=== PATIENT | male | born 1945 | race Caucasian/White ===

== ENCOUNTER 2017-04-11 21:40 | Emergency (ER) | payer OTHER, MEDICARE ==
[~2017-04-11] VITALS: Ht 165.1 cm; Wt 75.0 kg
[2017-04-11 21:43] VITALS: BP 156/83; PULSE 57; RESP 16; TEMP 97.9; O2SAT 98
[2017-04-11] MEDS ORDERED: [UNRECOGNIZED DRUG - OTHER] PO (22:18)
--- NOTE | 2017-04-11 22:22 | PD ---
HPI Chief Complaint: Abdominal Pain Time Seen by Provider: 22:15 Travel History International Travel<30 days: No Contact w/Intl Traveler<30days: No Traveled to known affect area: No History of Present Illness HPI 71-year-old male presents to the emergency department by private transportation the care of his daughter for 7 hours of upper abdominal pain. Patient denies chest pain or shortness of breath. Patient has had 2 episodes of vomiting. No hematemesis no coffee-ground emesis no bilious emesis. No diarrhea. Patient rates pain 7/10 in intensity. Symptoms began after eating lunch. No prior history of similar type abdominal pain. No prior history of CAD hypertension diabetes or tobaccoism. Patient states he has borderline elevated cholesterol and takes no medication for this. Patient reports pain does not radiated to the back chest or into the neck or jaw. Patient's had no diaphoresis. Patient denies any lower abdominal pain or lower extremity numbness tingling or weakness. Patient's had no near-syncope or syncope. Patient is unable to identify exacerbating or alleviating factors. [facility] Past Medical History Narrative Medical borderline dyslipidemia GERD; no tobacco use: Nursing notes reviewed; family history stomach cancer GERD: Yes Integumentary: Yes (exema) Tetanus Vaccination: Never Vaccinated Past Surgical History Eye Surgery: Yes (cataract sx) Social History Alcohol Use: No Tobacco Use: No Substance Use: No Allergies-Medications (Allergen,Severity, Reaction): Coded Allergies: No Known Allergies (Verified Allergy, Unknown, 04/11/17) Reported Meds & Prescriptions Reported Meds & Active Scripts Active Reported Minocycline (Minocycline HCl) 50 Mg Cap Mg PO BID [zyrtex] PO Review of Systems Except as stated in HPI: all other systems reviewed are Neg Physical Exam Narrative GENERAL: Well-developed well-nourished male in no acute distress no respiratory distress SKIN: Warm and dry. HEAD: Normocephalic. EYES: No scleral icterus. No injection or drainage. NECK: Supple, trachea midline. No JVD or lymphadenopathy. CARDIOVASCULAR: Regular rate and rhythm without murmurs, gallops, or rubs. RESPIRATORY: Breath sounds equal bilaterally. No accessory muscle use. GASTROINTESTINAL: Abdomen soft, mild reproducible epigastric and right upper quadrant tenderness to palpation without guarding or rebound or palpable pulsatile mass., nondistended. MUSCULOSKELETAL: No cyanosis, or edema. Radial and dorsalis pedis pulses 2+ to palpation. BACK: Nontender without obvious deformity. No CVA tenderness. Data Data Last Documented VS Vital Signs Date Time Temp Pulse Resp B/P (MAP) Pulse Ox O2 Delivery O2 Flow Rate FiO2 04/12/17 05:19 04/11/17 23:22 58 95 Room Air 04/11/17 23:07 20 04/11/17 21:43 97.9 Orders Orders Complete Blood Count With Diff (04/11/17 22:16) Comprehensive Metabolic Panel (04/11/17 22:16) Lipase (04/11/17 22:16) Lactic Acid (04/11/17 22:16) Urinalysis - C+S If Indicated (04/11/17 22:16) Iv Access Insert/Monitor (04/11/17 22:16) Ecg Monitoring (04/11/17 22:16) Oximetry (04/11/17 22:16) Sodium Chloride 0.9% Flush (Ns Flush) (04/11/17 22:30) Electrocardiogram (04/11/17 22:16) Troponin I (04/11/17 22:16) Ckmb (Isoenzyme) Profile (04/11/17 22:16) Magnesium (Mg) (04/11/17 22:16) Sodium Chlor 0.9% 1000 Ml Inj (Ns 1000 M (04/11/17 22:30) Ondansetron Inj (Zofran Inj) (04/11/17 22:30) Morphine Inj (Morphine Inj) (04/11/17 22:30) Type And Screen (04/11/17 22:16) Chest, Single Ap (04/11/17 ) Aspirin Chew (Aspirin Chew) (04/11/17 22:45) Nitroglycerin Sl (Nitrostat Sl) (04/11/17 22:45) Sodium Chlorid 0.9% 500 Ml Inj (Ns 500 M (04/11/17 23:30) Hydromorphone Pf Inj (Dilaudid Pf Inj) (04/11/17 23:30) Ct Abd/Pel W Iv Contrast(Rout) (04/12/17 ) Iohexol 350 Inj (Omnipaque 350 Inj) (04/12/17 01:54) Troponin I (04/12/17 02:32) Us Abdomen Gallbladder (04/12/17 ) Ed Discharge Order (04/12/17 05:09) Labs Laboratory Tests Test 04/11/17 22:24 04/12/17 00:54 04/12/17 03:05 White Blood Count 9.0 TH/MM3 Red Blood Count 4.64 MIL/MM3 Hemoglobin 14.8 GM/DL Hematocrit 44.0 % Mean Corpuscular Volume 94.8 FL Mean Corpuscular Hemoglobin 31.8 PG Mean Corpuscular Hemoglobin Concent 33.6 % Red Cell Distribution Width 13.5 % Platelet Count 202 TH/MM3 Mean Platelet Volume 10.2 FL Neutrophils (%) (Auto) 60.6 % Lymphocytes (%) (Auto) 28.9 % Monocytes (%) (Auto) 7.2 % Eosinophils (%) (Auto) 2.8 % Basophils (%) (Auto) 0.5 % Neutrophils # (Auto) 5.4 TH/MM3 Lymphocytes # (Auto) 2.6 TH/MM3 Monocytes # (Auto) 0.6 TH/MM3 Eosinophils # (Auto) 0.2 TH/MM3 Basophils # (Auto) 0.0 TH/MM3 CBC Comment DIFF FINAL Differential Comment Blood Urea Nitrogen 20 MG/DL Creatinine 0.96 MG/DL Random Glucose 133 MG/DL Total Protein 7.2 GM/DL Albumin 3.5 GM/DL Calcium Level 7.7 MG/DL Magnesium Level 2.1 MG/DL Alkaline Phosphatase 96 U/L Aspartate Amino Transf (AST/SGOT) 22 U/L Alanine Aminotransferase (ALT/SGPT) 20 U/L Total Bilirubin 0.3 MG/DL Sodium Level 142 MEQ/L Potassium Level 4.5 MEQ/L Chloride Level 109 MEQ/L Carbon Dioxide Level 26.9 MEQ/L Anion Gap 6 MEQ/L Estimat Glomerular Filtration Rate 78 ML/MIN Lactic Acid Level 1.4 mmol/L Total Creatine Kinase 73 U/L Troponin I LESS THAN 0.02 NG/ML LESS THAN 0.02 NG/ML Lipase 157 U/L Urine Color YELLOW Urine Turbidity CLEAR Urine pH 5.5 Urine Specific [place] 1.029 Urine Protein TRACE mg/dL Urine Glucose (UA) NEG mg/dL Urine Ketones NEG mg/dL Urine Occult Blood NEG Urine Nitrite NEG Urine Bilirubin NEG Urine Urobilinogen LESS THAN 2.0 MG/DL Urine Leukocyte Esterase NEG Urine RBC LESS THAN 1 /hpf Urine WBC 1 /hpf Urine Squamous Epithelial Cells <1 /hpf Urine Mucus FEW /lpf Microscopic Urinalysis Comment CULT NOT INDICATED MDM Medical Decision Making Medical Screen Exam Complete: Yes Emergency Medical Condition: Yes Medical Record Reviewed: Yes Interpretation(s) Last Impressions Abdomen/Pelvis CT 04/12/17 0000 Signed Impressions: Service Date/Time: Wednesday, April 12, 2017 01:50 - CONCLUSION: Normal examination except for numerous gallstones. Jovanny Sandoval MD Chest X-Ray 04/11/17 0000 Signed Impressions: Service Date/Time: Tuesday, April 11, 2017 22:21 - CONCLUSION: Examination mildly degraded by motion artifact. However, no acute finding is identified. Sarthak Rosario MD EKG sinus bradycardia rate [address] elevation age-indeterminate QS inferiorly EKG: Sinus bradycardia rate 55 QS inferiorly no acute ST elevation or injury pattern change or ectopy CBC & BMP Diagram 04/11/17 22:24 Total Protein 7.2, Albumin 3.5, Calcium Level 7.7 L, Magnesium Level 2.1, Alkaline Phosphatase 96, Aspartate Amino Transf (AST/SGOT) 22, Alanine Aminotransferase (ALT/SGPT) 20, Total Bilirubin 0.3 Troponin I: less than 0.02, not elevated CK: 73, not elevated Lipase: 157, not elevated Lactic acid: 1.4, not elevated Troponin I (#2) Differential Diagnosis Abdominal pain, cholecystitis/biliary colic, pancreatitis, gastritis, peptic ulcer disease, abdominal aortic aneurysm, aortic dissection, myocardial infarction, atypical chest pain, esophageal spasm Narrative Course At 2:40 AM patient feels clinically improved discomfort as 2/[address] abdomen and pelvis reveals multiple gallstones with no gallbladder wall thickening or ductal dilatation and no acute process; troponin I is less than 0.02 CK is 71 these are not elevated values and EKG shows no acute ST elevation or injury pattern change although evidence of age-indeterminate inferior Q wave is identified. Patient will receive second troponin at this time and we'll obtain ultrasound of the gallbladder to further evaluate the gallbladder. Family at this time identifies that patient recently has been on a very low fat diet and then today had a very fatty meal prior to onset of symptoms consistent possible precipitant of biliary colic presentation. The patient has required no additional pain medicine after Dilaudid 0.5 mg IV. Diagnosis Primary Impression: Biliary colic Additional Impression: Cholelithiasis Qualified Codes: K80.20 - Calculus of gallbladder without cholecystitis without obstruction Claudia Yu MD Apr 11, 2017 22:22
[2017-04-11] MEDS ORDERED: ONDANSETRON HCL 4 MG/2 ML VIAL IV PUSH ONE (22:30)
[2017-04-11] MEDS ORDERED: SODIUM CHLOR 0.9% 1000 ML INJ 1,000 ML IV SCH (22:30)
[2017-04-11] MEDS ORDERED: SODIUM CHLORIDE 0.9% FLUSH 10 ML FLUSH IV FLUSH PRN (22:30)
[2017-04-11] MEDS ORDERED: MORPHINE SULFATE 4 MG/ML INJ IV PUSH ONE (22:30)
--- NOTE | 2017-04-11 22:38 | RADRPT ---
EXAM DATE/TIME: 04/11/2017 22:21 [facility] COMPARISON: No previous studies available for comparison. INDICATIONS : Vomiting MEDICAL HISTORY : None. SURGICAL HISTORY : None. ENCOUNTER: Initial ACUITY: 1 day PAIN SCORE: 0/10 LOCATION: chest FINDINGS: Portable AP view of the chest demonstrates a normal-sized cardiac silhouette. No effusion, consolidat ion, or pneumothorax is visualized. The bones and soft tissues demonstrate no acute abnormality. Ther e is mild motion artifact. CONCLUSION: Examination mildly degraded by motion artifact. However, no acute finding is identified. Sarthak Rosario MD on April 11, 2017 at 22:32 Board Certified Radiologist. This report was verified electronically.
[2017-04-11] MEDS ORDERED: NITROGLYCERIN 0.4 MG SL 25 TABS/BTL SL PRN (22:45)
[2017-04-11] MEDS ORDERED: ASPIRIN 81 MG CHEW TAB CHEW ONE (22:45)
[2017-04-11 22:51] VITALS: BP 130/78; PULSE 64; RESP 20; O2SAT 95
[2017-04-11] MEDS ORDERED: MINO50CA PO (22:53)
[2017-04-11 22:59] LABS: AUTOMATED NEUTROPHIL # 5.4 TH/MM3 (1.8-7.7); BASOPHIL % 0.5 % (0.0-2.0); EOSINOPHIL # 0.2 TH/MM3 (0-0.4); EOSINOPHIL % 2.8 % (0.0-4.0); HEMO FLAGS DIFF FINAL; LYMPH % 28.9 % (9.0-44.0); LYMPHOCYTE # 2.6 TH/MM3 (1.0-4.8); MEAN CELL VOLUME 94.8 FL (80.0-100.0); MEAN CORPUSCULAR HEMOGLOBIN 31.8 PG (27.0-34.0); MEAN CORPUSCULAR HGB CONC 33.6 % (32.0-36.0); MONO % 7.2 % (0.0-8.0); NEUT % 60.6 % (16.0-70.0); PLATELET COUNT 202 TH/MM3 (150-450); RED BLOOD COUNT 4.64 MIL/MM3 (4.50-5.90); RED CELL DISTRIBUTION WIDTH 13.5 % (11.6-17.2)
[2017-04-11 23:07] VITALS: BP 111/68; PULSE 53; RESP 20; O2SAT 97
[2017-04-11 23:18] LABS: ANION GAP 6 MEQ/L (5-15); AST (GOT) 22 U/L (15-37); BICARBONATE 26.9 MEQ/L (21.0-32.0); BLOOD UREA NITROGEN 20 MG/DL (7-18); CHLORIDE 109 MEQ/L (98-107); GLOMERULAR FILTRATION RATE 78 ML/MIN (>89); MAGNESIUM 2.1 MG/DL (1.5-2.5); POTASSIUM 4.5 MEQ/L (3.5-5.1); SODIUM (NA) 142 MEQ/L (136-145)
[2017-04-11 23:22] VITALS: BP 125/70; PULSE 58; O2SAT 95
[2017-04-11 23:22] LABS: ALKALINE PHOSPHATASE 96 U/L (45-117); ALT (GPT) 20 U/L (12-78); TOTAL BILIRUBIN ADULT 0.3 MG/DL (0.2-1.0)
[2017-04-11 23:23] LABS: CREATINE KINASE 73 U/L (39-308)
[2017-04-11] MEDS ORDERED: HYDROmorphone HCL PF 0.5 MG/0.5 ML SYRINGE IV PUSH ONE (23:30)
[2017-04-11] MEDS ORDERED: SODIUM CHLORID 0.9% 500 ML INJ 500 ML IV ONE (23:30)
[2017-04-12 01:13] LABS: BLOOD, URINE NEG (NEG); COMMENT (UR) CULT NOT INDICATED; CULTURE IF INDICATED CULT NOT INDICATED; GLUCOSE,URINE NEG (NEG); KETONE, URINE NEG (NEG); MUCUS URINE FEW /lpf (OCC); NITRITE,URINE NEG (NEG); PH, URINE 5.5 (5.0-8.5); SQUAMOUS EPITHELIAL CELL URINE <1 /hpf (0-5); URINE COLOR YELLOW (YELLW/STRAW)
[2017-04-12] MEDS ORDERED: IOHEXOL 350 MG/ML 10 ML VIAL (for RAD DIAG) IVCONTRAST ONE (01:54)
--- NOTE | 2017-04-12 02:08 | RADRPT ---
EXAM DATE/TIME: 04/12/2017 01:50 [facility] COMPARISON: No previous studies available for comparison. INDICATIONS : Abdominal pain with nausea and vomiting. IV CONTRAST: 90 cc Omnipaque 350 (iohexol) IV ORAL CONTRAST: No oral contrast ingested. RADIATION DOSE: 12.98 CTDIvol (mGy) MEDICAL HISTORY : Gastroesophageal reflux disease. SURGICAL HISTORY : None. ENCOUNTER: Initial ACUITY: 1 day PAIN SCALE: 7/10 LOCATION: Bilateral abdomen TECHNIQUE: Volumetric scanning of the abdomen and pelvis was performed. Using automated exposure control and ad justment of the mA and/or kV according to patient size, radiation dose was kept as low as reasonably achievable to obtain optimal diagnostic quality images. DICOM format image data is available electro nically for review and comparison. FINDINGS: LOWER LUNGS: The visualized lower lungs are clear. LIVER: Homogeneous density without lesion. There is no dilation of the biliary tree. Numerous gallstones. SPLEEN: Normal size without lesion. PANCREAS: Within normal limits. KIDNEYS: Normal in size and shape. There is no mass, stone or hydronephrosis. ADRENAL GLANDS: Within normal limits. VASCULAR: There is no aortic aneurysm. BOWEL/MESENTERY: Small hiatal hernia . The stomach, small bowel, and colon demonstrate no acute abnormality. There i s no free intraperitoneal air or fluid. ABDOMINAL WALL: Within normal limits. RETROPERITONEUM: There is no lymphadenopathy. BLADDER: No wall thickening or mass. REPRODUCTIVE: Within normal limits. INGUINAL: There is no lymphadenopathy or hernia. MUSCULOSKELETAL: Within normal limits for patient age. CONCLUSION: Normal examination except for numerous gallstones. Jovanny Sandoval MD on April 12, 2017 at 2:04 Board Certified Radiologist. This report was verified electronically.
--- NOTE | 2017-04-12 03:56 | RADRPT ---
EXAM DATE/TIME: 04/12/2017 03:20 [facility] COMPARISON: No previous studies available for comparison. INDICATIONS : Gallstones. MEDICAL HISTORY : Gastroesophageal reflux disease. Gallstones. Eczema. SURGICAL HISTORY : Cataract surgery. ENCOUNTER: Initial ACUITY: 2 days PAIN SCORE: 3/10 LOCATION: Right upper quadrant MEASUREMENTS: LIVER: 18.8 cm length COMMON DUCT: 6 mm RIGHT KIDNEY: 11.2 x 6.3 x 6.4 cm FINDINGS: LIVER: Slightly increased echotexture without focal lesion or ductal dilatation. COMMON DUCT: No intraluminal mass or stone visualized. GALLBLADDER: Contains numerous stones, also demonstrates questionable wall thickening .A review of the CT scan dem onstrates no obvious paracholecystic inflammation PANCREAS: The visualized portions are within normal limits. RIGHT KIDNEY: No evidence of hydronephrosis, stone, or mass. CONCLUSION: Numerous gallstones. On a few images the wall may be slightly thickened but I don't see any definite fluid. the inflammation is not very significant on the recent CT scan. Jovanny Sandoval MD on April 12, 2017 at 3:49 Board Certified Radiologist. This report was verified electronically.
--- NOTE | 2017-04-12 19:05 | EKG ---
Date Performed: 04/11/2017 Time Performed: 22:30:36 PTAGE: 71 years EKG: SINUS BRADYCARDIA POSSIBLE INFERIOR MYOCARDIAL INFARCTION BORDERLINE ECG NO PREVIOUS TRACING DOCTOR: Kayla Sanders Interpretating Date/Time 04/12/2017 19:04:26
== END 2017-04-12 05:20 | disposition home or self-care (01) ==
LOC: NEPC 21:40
DX: K80.50 Calculus of bile duct without cholangitis or cholecystitis without obstruction (principal); K80.20 Calculus of gallbladder without cholecystitis without obstruction; R94.31 Abnormal electrocardiogram [ECG] [EKG]; Z87.19 Personal history of other diseases of the digestive system
CPT/HCPCS: 71010; 74177; 76705; 80053; 81001; 82550; 83605; 83690; 83735; 84484; 85025; 86850; 86900; 86901; 93005; 96361; 96374; 96375; 99285; J1170; J2270; J2405; J7030; J7040; Q9967